=== PATIENT | female | born 2005 | race Two or more races ===

== ENCOUNTER 2025-01-17 11:10 | Outpatient (CLI) | payer OTHER ==
[2025-01-17 14:23] LABS: ALBUMIN 3.5 gm/dL (3.4-5.0); BILIRUBIN TOTAL 0.46 mg/dL (0.3-1.2); CALCIUM 8.9 mg/dL (8.5-10.1); CREATININE SERUM 0.37 mg/dL (0.55-1.02); GFR 224.98; GLOBULINA 3.1 G/DL (2.4-3.5); POTASSIUM 3.91 mEq/L (3.5-5.1); T4 FREE 1.01 NG/ML (0.76-1.46); TOTAL PROTEIN 6.6 gm/dL (6.4-8.2)
[2025-01-17 14:24] LABS: TSH 0.094 uIU/mL (0.358-3.74)
[2025-01-17 15:30] LABS: RAPID PLASMA REAGIN NONREACTIVE BY RPR (NONREACTIVE)
[2025-01-19 05:07] LABS: HEPATITIS C VIRUS ANTIBODY Non Reactive (Non Reactive)
[2025-01-19 09:08] LABS: VARICELLA ZOSTER VIRUS IGG Reactive (Non Reactive)
[2025-01-19 13:08] LABS: a:g ratio 1.3 (0.7-1.7); alpha 1 g 0.3 g/dL (0.0-0.4); alpha 2 0.7 g/dL (0.4-1.0); beta g 0.9 g/dL (0.7-1.3); gamma g 0.8 g/dL (0.4-1.8); globulin t 2.8 g/dL (2.2-3.9); hgb a 97.3 % (96.4-98.8); hgb a2 2.7 % (1.8-3.2); hgb f 0 % (0.0-2.0); hgb s 0 % (0.0); m spike Not Observed g/dL (Not Observed); prot total 6.3 g/dL (6.0-8.5)
== END 2025-01-17 12:06 | disposition home or self-care (01) ==
LOC: LAB 11:10 → CIR.AMB 11:10 → LAB 12:06
DX: E03.9 Hypothyroidism, unspecified (principal); N30.00 Acute cystitis without hematuria; Z34.81 Encounter for supervision of other normal pregnancy, first trimester

== ENCOUNTER → 2025-06-30 11:12 | Outpatient (CLI) | payer OTHER | END | disposition home or self-care (01) | LOC: NUCLEAR 11:00 | DX: R60.0 Localized edema (principal) ==

== ENCOUNTER 2025-07-04 12:58 | Outpatient (CLI) | payer OTHER | END 2025-07-04 13:40 | disposition home or self-care (01) | LOC: NST 12:58 | PROVIDERS: ATTEND Obstetrics & Gynecology Gynecology | DX: Z34.83 Encounter for supervision of other normal pregnancy, third trimester (principal) ==

== ENCOUNTER 2025-08-09 00:29 | Emergency (ER) | payer OTHER ==
[~2025-08-09] VITALS: Ht 165.1 cm; Wt 55.8 kg
[2025-08-09] MEDS ORDERED: KETOROLAC TROMETHAMINE 30 MG VIAL IV STA (02:38)
[2025-08-09] MEDS ORDERED: KETOROLAC TROMETHAMINE 30 MG VIAL ONE (02:40)
[2025-08-09 03:00] LABS: BASO % 0.4 % (0.1-1.2); EOS # 0.13 (0.04-0.54); EOS % 1.7 % (0.7-7.0); LYMPH # 1.65 (1.18-3.74); LYMPH % 21.4 % (19.3-53.1); MEAN PLATELET VOLUME 9.30 fl (9.4-12.4); MONO # 0.85 (0.24-0.82); MONO % 11.0 % (4.7-12.5); NEUT # 5.03 (1.56-6.13); NEUT % 65.1 % (34.0-71.1); RED CELL DISTRIBUTION WIDTH 11.6 % (11.6-14.4)
[2025-08-09 04:47] LABS: URINE APPEARANCE Clear; URINE BILIRRUBIN Negative (NEGATIVE); URINE BLOOD Negative; URINE COLOR Yellow; URINE GLUCOSE Negative (NEGATIVE); URINE KETONE 15 (NEGATIVE); URINE LEUKOCYTE Trace; URINE NITRATE Negative; URINE PROTEIN Negative (NEGATIVE); URINE UROBILINOGEN 0.2 E.U./dl
[2025-08-09 04:48] LABS: URINE BACTERIA 138.4 uL (0.0-1933); URINE EPITHELIAL CELLS 16.0 uL (0.0-38.8); URINE WBC 16.0 uL (0.0-23.2)
[2025-08-09 04:52] LABS: URINE CAST 0.14 uL (0.0-1.40); URINE RBC 1.9 uL (0.0-20.8)
[2025-08-09] MEDS ORDERED: IBU600 MG PO (06:14)
[2025-08-09] MEDS ORDERED: CEPHALEXIN500 MG PO (06:14)
== END 2025-08-09 06:24 ==
LOC: ER 00:29
PROVIDERS: General Practice
DX: O90.2 Hematoma of obstetric wound (principal); R10.20 Pelvic and perineal pain unspecified side